=== PATIENT | male | born 1990 | race Caucasian/White ===

== ENCOUNTER 2016-08-20 11:32 | Emergency (ER) | payer MEDICAID ==
[2016-08-20] MEDS ORDERED: OPTIRAY 350 100 ML VIAL HMH IV ONE (11:33)
[2016-08-20] MEDS ORDERED: ONDANSETRON 4 MG VIAL ONE (13:28)
[2016-08-20] MEDS ORDERED: SODIUM CHLORIDE 0.9% 1,000 ML ONE (13:28)
== END 2016-08-20 17:02 | disposition home or self-care (01) ==
LOC: ER 11:32
DX: K51.80 Other ulcerative colitis without complications (principal); F17.210 Nicotine dependence, cigarettes, uncomplicated
CPT/HCPCS: 36415; 74177; 80053; 81003; 83690; 85025; 96361; 96374